=== PATIENT | male | born 1970 | race Two or more races ===

== ENCOUNTER 2016-06-22 13:29 | Emergency (ER) | payer OTHER ==
[2016-06-22 13:34] VITALS: BP 144/80; PULSE 88; TEMP 97.9; BMI 38.7
[2016-06-22] MEDS ORDERED: KETOROLAC TROMETHAMINE 60 MG/2 ML VIAL IM ONE (14:52)
--- NOTE | 2016-06-22 14:52 | PDOC ---
History of Present Illness - General Chief Complaint: Pain Stated Complaint: BACK PAIN Time Seen by Provider: 06/22/16 14:10 History Source: Patient Exam Limitations: No Limitations - History of Present Illness Initial Comments: 06/22/16 14:56 Chief complaint: Left-sided lower back pain radiating down left leg this morning History of present illness: Patient is a 46-year-old male with no significant medical history except for having intermittent left-sided lower back pain with radiation down his leg for 3 months. Patient reports that some days he does not have pain however today he was brushing his teeth and went to stand up correctly and felt pain in his left lateral back radiating down his left posterior leg to his foot. Patient denies any numbness of the leg or any saddle anesthesia or any incontinency. Not taken anything for pain. Patient reports that pain is worse when getting up from a lying down or seated position or walking. She reports the pain currently is an 8 out of 10 sometimes sharp in nature and throbbing. Occurred: reports: this morning Severity: reports: moderate Pain Location: reports: back (left sided back pain radiating down posterior leg to foot) Method of Injury: Yes: unknown Modifying Factors: improves with: None Loss of Consciousness: no loss of consciousness Associated Symptoms (Fall): denies symptoms Past History - Past Medical History Allergies/Adverse Reactions: Allergies Allergy/AdvReac Type Severity Reaction Status Date / Time No Known Allergies Allergy Verified 06/22/16 13:32 Home Medications: Ambulatory Orders Oxycodone HCl/Acetaminophen [Percocet 5-325 mg Tablet] 1 tab PO Q6H PRN #11 tablet MDD 4 06/22/16 - Psycho/Social/Smoking Cessation Hx Anxiety: No Suicidal Ideation: No Smoking History: Never smoked Have you smoked in the past 12 months: No Information on smoking cessation initiated: No Hx Alcohol Use: No Drug/Substance Use Hx: No Substance Use Type: None Review of Systems - Review of Systems Able to Perform ROS?: Yes Constitutional: No: Symptoms Reported HEENTM: No: Symptoms Reported Respiratory: No: Symptoms reported Cardiac (ROS): No: Symptoms Reported ABD/GI: No: Symptoms Reported : No: Symptoms Reported Musculoskeletal: Yes: Back Pain (left sided back pain radiates down left leg posteriorly to foot) Integumentary: No: Symptoms Reported Neurological: No: Symptoms reported *Physical Exam - Vital Signs Last Vital Signs Temp Pulse Resp BP Pulse Ox 97.9 F 88 18 144/80 100 06/22/16 13:32 06/22/16 13:32 06/22/16 13:32 06/22/16 13:32 06/22/16 13:32 - Physical Exam General Appearance: Yes: Appropriately Dressed Respiratory/Chest: positive: Lungs Clear, Normal Breath Sounds. negative: Chest Tender, Respiratory Distress Cardiovascular: positive: Regular Rhythm, Regular Rate, S1, S2 Musculoskeletal: positive: Normal Inspection, Muscle Spasm (left sided lumbar paraspinal muscle tenderness ). negative: CVA Tenderness, CVA Tenderness (R), CVA Tenderness (L), Decreased Range of Motion, Vertebral Tenderness Extremity: positive: Normal Capillary Refill, Normal Inspection, Normal Range of Motion Integumentary: positive: Normal Color Neurologic: positive: Alert, Normal Response, Motor Strength 5/5 (b/l legs ), Respond to painful stimul (b/l legs ), Responsive. negative: Numbness, Sensory Deficit Deep Tendon Reflexes: Knee (L): 4+, Knee (R): 4+ Medical Decision Making - Medical Decision Making 06/22/16 14:58 Patient is a 46-year-old male with no significant medical history except for having intermittent left-sided lower back pain with radiation down his leg for 3 months. Patient reports that some days he does not have pain however today he was brushing his teeth and went to stand up correctly and felt pain in his left lateral back radiating down his left posterior leg to his foot. Patient denies any numbness of the leg or any saddle anesthesia or any incontinency. Not taken anything for pain. Patient reports that pain is worse when getting up from a lying down or seated position or walking. She reports the pain currently is an 8 out of 10 sometimes sharp in nature and throbbing. Left sided lower back pain with radiculopathy down left leg to foot with muscle spasm of lumbar paraspinal muscle Plan: X-ray lumbar sacral spine impression straightening 5 lumbar type vertebral bodies with scoliosis, convexity to the right. The intravertebral disc spaces are preserved Degenerative changes with wedging per Dr. Rock Toradol 60 mg IM Valium 5 mg by mouth now 06/22/16 16:16 Continues to have pain in left lower back radiating down left leg will get Percocet 5 mg/325 mg by mouth now than every 6 hrs prn severe pain # 11 patient is not driving will have patient follow up with orthopedist as soon as possible patient does not have health insurance will sent to [facility] or through clinic 06/22/16 16:20 *DC/Admit/Observation/Transfer Diagnosis at time of Disposition: Lumbar pain with radiation down left leg - Discharge Dispostion Disposition: HOME Condition at time of disposition: Stable - Prescriptions Prescriptions: Oxycodone HCl/Acetaminophen [Percocet 5-325 mg Tablet] 1 tab PO Q6H PRN #11 tablet MDD 4 PRN Reason: Severe Pain - Patient Instructions Additional Instructions: Follow up with orthopedist at [facility] orthopedic clinic at [phone] for further eval Any strenuous activities or exercises or lifting Return to emergency room if pain worsens or any numbness of your groin or leg or inability to hold your urine Patient voiced understanding of discharge instructions and all questions were answered
[2016-06-22] MEDS ORDERED: diazePAM 5 MG TABLET PO ONE (14:53)
[2016-06-22] MEDS ORDERED: diazePAM 5 MG TABLET ONE (14:58)
[2016-06-22] MEDS ORDERED: KETOROLAC TROMETHAMINE 60 MG/2 ML VIAL ONE (14:58)
[2016-06-22] MEDS ORDERED: OXYCODONE/APAP 5/325MG COMBO TABLET PO ONE (16:18)
[2016-06-22] MEDS ORDERED: OXYCODONE/APAP 5/325MG COMBO TABLET ONE (16:20)
== END 2016-06-22 16:27 | disposition home or self-care (01) ==
LOC: JERFT 13:29
PROC: 3E0233Z Introduction of Anti-inflammatory into Muscle, Percutaneous Approach (ICD-10-PCS; principal; 2016-06-22)
DX: M54.42 Lumbago with sciatica, left side (principal)
CPT/HCPCS: 72100-TC; 99281-25

== ENCOUNTER 2020-08-05 19:05 | Observation (INO) | payer OTHER ==
[2020-08-05 20:12] LABS: BASO % 0.7 % (0-2.0); EOS % 9.7 % (0-4.5); HEMATOCRIT 46.2 % (35.4-49); HEMOGLOBIN 15.8 GM/dL (11.7-16.9); LYMPH % 26.9 % (8-40); MCH 30.1 pg (25.7-33.7); MCHC 34.2 g/dl (32.0-35.9); MEAN PLT VOLUME 8.8 fl (7.5-11.1); MONO % 6.3 % (3.8-10.2); NEUT % 56.4 % (42.8-82.8); PLATELET COUNT 240 K/MM3 (134-434); RBC 5.25 M/mm3 (4.00-5.60); RDW 13.8 % (11.9-15.9); WHITE BLOOD COUNT 9.1 K/mm3 (4.0-10.0)
[2020-08-05 20:19] LABS: INR 1.04 (0.83-1.09); PROTHROMBIN TIME (PATIENT) 12.8 SEC (9.7-13.0)
[2020-08-05 20:22] LABS: ACTIVATED PTT 29.3 SECONDS (25.2-36.5)
[2020-08-05 20:30] LABS: MAGNESIUM 2.3 mg/dL (1.8-2.4)
[2020-08-05 20:33] LABS: CALCIUM 8.8 mg/dL (8.5-10.1)
[2020-08-05 20:34] LABS: BLOOD UREA NITROGEN 17.3 mg/dL (7-18)
[2020-08-05 20:37] LABS: CREATININE 1.2 mg/dL (0.55-1.3)
[2020-08-05 20:38] LABS: BILIRUBIN,TOTAL 0.4 mg/dL (0.2-1); TOT PROT 7.4 g/dl (6.4-8.2)
[2020-08-05 21:53] LABS: PH,URINE 5.5 (5.0-8.0); URINE APPEARANCE CLEAR; URINE BILIRUBIN NEGATIVE (NEGATIVE); URINE COLOR YELLOW; URINE GLUCOSE (UA) NEGATIVE (NEGATIVE); URINE KETONE TRACE (NEGATIVE); URINE LEUK ESTERASE NEGATIVE (NEGATIVE); URINE NITRITE NEGATIVE (NEGATIVE); URINE PROTEIN NEGATIVE (NEGATIVE)
[2020-08-05] MEDS ORDERED: ASPIRIN 81 MG CHEWABLE TABLETS PO ONE (22:42)
[2020-08-05] MEDS ORDERED: ASPIRIN 81 MG CHEWABLE TABLETS ONE (23:11)
[2020-08-05] MEDS ORDERED: ALBUTEROL SO4 0.083% IH SOL 2.5 MG/3 ML VIAL.NEB. NEB PRN (23:31)
[2020-08-05] MEDS ORDERED: ALBUTEROL SO4 HFA INHALER IH PRN (23:31)
[2020-08-06 03:11] VITALS: BMI 36.3
[2020-08-06 07:49] LABS: BASO % 0.7 % (0-2.0); HEMATOCRIT 43.7 % (35.4-49); HEMOGLOBIN 15.1 GM/dL (11.7-16.9); LYMPH % 28.7 % (8-40); MCH 30.3 pg (25.7-33.7); MCHC 34.5 g/dl (32.0-35.9); MEAN CELL VOLUME 87.8 fl (80-96); MEAN PLT VOLUME 8.8 fl (7.5-11.1); MONO % 6.1 % (3.8-10.2); NEUT % 51.5 % (42.8-82.8); PLATELET COUNT 221 K/MM3 (134-434); RBC 4.97 M/mm3 (4.00-5.60); RDW 13.3 % (11.9-15.9); WHITE BLOOD COUNT 7.3 K/mm3 (4.0-10.0)
[2020-08-06 08:00] LABS: CHLORIDE 107 mmol/L (98-107); SODIUM 139 mmol/L (136-145)
[2020-08-06 08:09] LABS: BLOOD UREA NITROGEN 22.4 mg/dL (7-18); GLUCOSE,RANDOM 111 mg/dL (74-106)
[2020-08-06 08:10] LABS: ALBUMIN 3.8 g/dl (3.4-5.0)
[2020-08-06 08:11] LABS: ANION GAP 7 MMOL/L (8-16); CALCIUM 8.4 mg/dL (8.5-10.1); CO2 25 mmol/L (21-32)
[2020-08-06 08:12] LABS: SGOT/AST 33 U/L (15-37); SGPT/ALT 52 U/L (13-61)
[2020-08-06 08:14] LABS: BILIRUBIN,TOTAL 0.3 mg/dL (0.2-1); TOT PROT 6.9 g/dl (6.4-8.2)
[2020-08-06 08:15] LABS: ALK PHOS 126 U/L (45-117)
[2020-08-06 09:21] LABS: SYPHILIS W/ RPR CONF NON-REACTIVE (NONREACTIVE)
[2020-08-06 09:30] LABS: SARS COV 2 AB TOTAL REACTIVE (NONREACTIVE)
[2020-08-06] MEDS ORDERED: ENOXAPARIN NA (PORCINE) 40 MG/0.4 ML DISP.SYRIN SQ SCH (10:00)
[2020-08-06] MEDS ORDERED: FAMOTIDINE 10 MG TABLET PO SCH (10:00)
[2020-08-06] MEDS: PANTOPRAZOLE 40 MG TABLET PO SCH (11:03)
[2020-08-06] MEDS: BUDESONIDE/FORMETEROL FUMARATE 160/4.5 mcg INHALER IH SCH (21:27)
[2020-08-07 08:12] LABS: BASO % 0.7 % (0-2.0); EOS % 9.9 % (0-4.5); HEMATOCRIT 45.7 % (35.4-49); HEMOGLOBIN 15.8 GM/dL (11.7-16.9); LYMPH % 25.7 % (8-40); MCH 30.3 pg (25.7-33.7); MCHC 34.5 g/dl (32.0-35.9); MEAN PLT VOLUME 8.6 fl (7.5-11.1); MONO % 5.8 % (3.8-10.2); NEUT % 57.9 % (42.8-82.8); PLATELET COUNT 224 K/MM3 (134-434); RDW 13.4 % (11.9-15.9); WHITE BLOOD COUNT 7.5 K/mm3 (4.0-10.0)
[2020-08-07 08:28] LABS: CALCIUM 8.7 mg/dL (8.5-10.1)
[2020-08-07 08:29] LABS: ALBUMIN 3.7 g/dl (3.4-5.0); BLOOD UREA NITROGEN 17.3 mg/dL (7-18); MAGNESIUM 2.2 mg/dL (1.8-2.4)
[2020-08-07 08:34] LABS: BILIRUBIN,TOTAL 0.6 mg/dL (0.2-1)
[2020-08-07] MEDS: BUDESONIDE/FORMETEROL FUMARATE 160/4.5 mcg INHALER IH SCH (09:46)
[2020-08-07] MEDS: PANTOPRAZOLE 40 MG TABLET PO SCH (09:47)
[2020-08-07 15:16] VITALS: BP 122/83; PULSE 83; TEMP 98
== END 2020-08-07 18:02 | disposition home or self-care (01) ==
LOC: JER 19:05 → JERBED 20:52 → J4W 08-06 02:49
PROVIDERS: ADMIT Hospitalist; ATTEND Nurse Practitioner Acute Care
PROC: 3E023GC Introduction of Other Therapeutic Substance into Muscle, Percutaneous Approach (ICD-10-PCS; principal; 2020-08-05)
DX: I10 Essential (primary) hypertension (principal); E78.5 Hyperlipidemia, unspecified; E66.8 Other obesity; Z68.36 Body mass index [BMI] 36.0-36.9, adult; R31.9 Hematuria, unspecified; K76.0 Fatty (change of) liver, not elsewhere classified; R79.89 Other specified abnormal findings of blood chemistry; M54.30 Sciatica, unspecified side; R07.1 Chest pain on breathing; R05 Cough; R74.01 Elevation of levels of liver transaminase levels; R06.2 Wheezing; Z29.9 Encounter for prophylactic measures, unspecified
CPT/HCPCS: 36415; 71045-TC-FY; 76700-TC; 76856-TC; 78452-TC; 80053; 80061; 81003; 82550; 82553; 83036; 83721; 83735; 84100; 84484; 85025; 85379; 85610; 85730; 86140; 86769; 86780; 93005; 93010; 93017; 93306-TC; 96372; 99285-25; A9502; C9803; G0378; U0003; U0005

== ENCOUNTER 2021-08-31 09:19 | Emergency (ER) | payer OTHER ==
[2021-08-31 09:32] VITALS: BMI 33.9
[2021-08-31] MEDS ORDERED: LACTATED RINGERS SOLUTION 1000 ML INFUS.BAG IV ONE (10:45)
[2021-08-31] MEDS ORDERED: ACETAMINOPHEN 1000 MG/100 ML BAG IVPB ONE (11:09)
[2021-08-31] MEDS ORDERED: ACETAMINOPHEN INJECTION 100 ML IVPB ONE (11:51)
[2021-08-31 12:21] LABS: BASO % 0.9 % (0-2.0); EOS % 12.2 % (0-4.5); HEMATOCRIT 46.2 % (35.4-49); HEMOGLOBIN 15.8 GM/dL (11.7-16.9); LYMPH % 24.3 % (8-40); MCH 29.7 pg (25.7-33.7); MCHC 34.2 g/dl (32.0-35.9); MEAN CELL VOLUME 86.8 fl (80-96); MEAN PLT VOLUME 8.7 fl (7.5-11.1); MONO % 6.4 % (3.8-10.2); NEUT % 56.2 % (42.8-82.8); PLATELET COUNT 228 10^3/uL (134-434); RBC 5.32 M/mm3 (4.00-5.60); RDW 13.3 % (11.9-15.9); WHITE BLOOD COUNT 7.4 K/mm3 (4.0-10.0)
[2021-08-31 12:44] LABS: BLOOD UREA NITROGEN 17.9 mg/dL (7-18)
[2021-08-31 12:45] LABS: ALBUMIN 3.8 g/dl (3.4-5.0); PH,URINE 5.5 (5.0-8.0); URINE APPEARANCE CLEAR; URINE BILIRUBIN NEGATIVE (NEGATIVE); URINE COLOR YELLOW; URINE GLUCOSE (UA) 3+ (NEGATIVE); URINE KETONE TRACE (NEGATIVE); URINE LEUK ESTERASE NEGATIVE (NEGATIVE); URINE NITRITE NEGATIVE (NEGATIVE); URINE PROTEIN NEGATIVE (NEGATIVE); URINE UROBILINOGEN 0.2 mg/dL (0.2-1.0)
[2021-08-31 12:47] LABS: CREATININE 0.9 mg/dL (0.55-1.3)
[2021-08-31 12:49] LABS: BILIRUBIN,TOTAL 0.4 mg/dL (0.2-1); TOT PROT 7.2 g/dl (6.4-8.2)
[2021-08-31 15:10] VITALS: BP 113/73; PULSE 68; TEMP 97.8
== END 2021-08-31 15:18 | disposition home or self-care (01) ==
LOC: JER 09:19
PROC: 3E033GC Introduction of Other Therapeutic Substance into Peripheral Vein, Percutaneous Approach (ICD-10-PCS; principal; 2021-08-31)
DX: H53.8 Other visual disturbances (principal)
CPT/HCPCS: 36415; 70450-TC; 71046-TC-FY; 72125-TC; 80053; 81003; 82010; 82962; 83036; 83690; 84484; 85025; 87086; 87186; 93005; 93010; 99285-25